=== PATIENT | male | born 1985 | race Caucasian/White ===

== ENCOUNTER 2018-02-02 11:33 | Inpatient (IN) | payer MEDICAID, OTHER ==
[~2018-02-02] VITALS: Ht 188 cm; Wt 108.4 kg
[2018-02-02] MEDS ORDERED: PALI39DI IM (12:30)
[2018-02-02 12:38] LABS: GLUCOSE,POINT OF CARE 107 MG/DL (70-110)
[2018-02-02 12:48] LABS: AMPHET/METH SCREEN,URINE NEGATIVE (NEGATIVE); BARBITURATE SCREEN, URINE NEGATIVE (NEGATIVE); BENZODIAZEPINES SCREEN,URINE NEGATIVE (NEGATIVE); CANNABINOID SCREEN,URINE NEGATIVE (NEGATIVE); COCAINE SCREEN,URINE NEGATIVE (NEGATIVE); METHADONE SCREEN, URINE NEGATIVE (NEGATIVE); OPIATE SCREEN,URINE NEGATIVE (NEGATIVE)
[2018-02-02 12:49] LABS: PHENCYCLIDINE SCREEN,URINE NEGATIVE (NEGATIVE)
[2018-02-02 13:02] LABS: BASOPHILS % (AUTO) 0.6 % (0.0-2.0); EOSINOPHILS % (AUTO) 2.6 % (1.0-6.0); HEMATOCRIT 43.9 % (41-53); HEMOGLOBIN 15.3 g/dL (13.5-17.5); LYMPHOCYTES # (AUTO) 1.8 K/uL (1.0-4.8); LYMPHOCYTES % (AUTO) 26.5 % (22.0-44.0); MEAN CORPUSCULAR HEMOGLOBIN 28.8 pg (26.0-34.0); MEAN CORPUSCULAR VOLUME 82 fL (80-100); MONOCYTES # (AUTO) 0.5 K/uL (0.1-1.0); MONOCYTES % (AUTO) 6.8 % (2.0-9.0); NEUTROPHILS # (AUTO) 4.2 K/uL (1.8-7.7); NEUTROPHILS % (AUTO) 63.5 % (40.0-70.0); PLATELET COUNT (AUTO) 355 K/uL (150-450); RED BLOOD CELL COUNT(AUTO) 5.33 MIL/uL (4.50-5.90)
[2018-02-02 13:10] LABS: ANION GAP 9 mmol/L (8-16); CARBON DIOXIDE 29 mmol/L (22-29); CHLORIDE 102 mmol/L (98-107); CREATININE 1.07 mg/dL (0.60-1.30); GLOMERULAR FILTR. RATE CALC > 60 mL/min (>60); GLUCOSE,RANDOM 102 mg/dL (70-110); POTASSIUM 3.9 mmol/L (3.5-5.1); SODIUM SERUM 140 mmol/L (136-145); UREA NITROGEN, BLOOD 7 mg/dL (7-18)
[2018-02-02 13:16] LABS: ALANINE AMINOTRANSFERASE 59 U/L (12-78); ALBUMIN 3.6 g/dL (3.4-5.0); ALKALINE PHOSPHATASE 115 U/L (46-116); ASPARTATE AMINOTRANSFERASE 29 U/L (15-37); BILIRUBIN,TOTAL 0.3 mg/dL (0.1-1.0); TOTAL PROTEIN, SERUM 8.1 g/dL (6.4-8.2)
[2018-02-02] MEDS ORDERED: ZOLPIDEM TARTRATE 10 MG TABLET PO PRN (15:30)
[2018-02-02] MEDS ORDERED: TUBERCULIN, PURIFIED PROTEIN DERIVATIVE 5 TU/0.1 ML SYG ID ONE (15:30)
[2018-02-02] MEDS ORDERED: HydrOXYzine PAMOATE 50 MG CAPSULE PO PRN (15:30)
[2018-02-02] MEDS ORDERED: MAG HYDROX/AL HYDROX/SIMETH ES 30 ML SUSPENSION UDCUP PO PRN (15:30)
[2018-02-02] MEDS ORDERED: OLANZapine 5 MG RAPDIS TABLET PO PRN (15:30)
[2018-02-02] MEDS ORDERED: PROMETHAZINE HCL 25 MG TABLET PO PRN (15:30)
[2018-02-02] MEDS ORDERED: GuaiFENesin/D-METHORPHAN [SUGAR-FREE] 200-20MG/10 ML SYRUP UDCUP PO PRN (15:30)
[2018-02-02] MEDS ORDERED: MAGNESIUM HYDROXIDE SUSPENSION 30 ML UDCUP PO PRN (15:30)
[2018-02-02] MEDS ORDERED: LOPERAMIDE HCL 2 MG CAPSULE PO PRN (15:30)
[2018-02-02] MEDS ORDERED: ACETAMINOPHEN 325 MG TABLET PO PRN (15:30)
[2018-02-02] MEDS ORDERED: LORazepam 2 MG TABLET PO PRN (15:30)
[2018-02-02] MEDS: THIAMINE HCL 100 MG TABLET PO SCH ×2 (20:52→20:56)
[2018-02-02] MEDS: OLANZapine 5 MG RAPDIS TABLET PO SCH ×2 (20:53→20:56)
[2018-02-02] MEDS: DIVALPROEX SODIUM 500 MG ER TABLET PO SCH (21:00)
[2018-02-03 06:33] LABS: BASOPHILS % (AUTO) 0.8 % (0.0-2.0); EOSINOPHILS % (AUTO) 3.6 % (1.0-6.0); HEMATOCRIT 43.7 % (41-53); HEMOGLOBIN 15.3 g/dL (13.5-17.5); LYMPHOCYTES # (AUTO) 2.4 K/uL (1.0-4.8); LYMPHOCYTES % (AUTO) 33.9 % (22.0-44.0); MEAN CORPUSCULAR VOLUME 83 fL (80-100); MONOCYTES # (AUTO) 0.4 K/uL (0.1-1.0); MONOCYTES % (AUTO) 5.7 % (2.0-9.0); NEUTROPHILS # (AUTO) 3.9 K/uL (1.8-7.7); PLATELET COUNT (AUTO) 333 K/uL (150-450); RED BLOOD CELL COUNT(AUTO) 5.29 MIL/uL (4.50-5.90); RED CELL DISTRIBUTION WIDTH 13.1 % (11.5-14.5)
[2018-02-03 06:57] LABS: ALANINE AMINOTRANSFERASE 47 U/L (12-78); ALBUMIN 3.6 g/dL (3.4-5.0); ALKALINE PHOSPHATASE 107 U/L (46-116); ANION GAP 5 mmol/L (8-16); ASPARTATE AMINOTRANSFERASE 20 U/L (15-37); BILIRUBIN,TOTAL 0.4 mg/dL (0.1-1.0); CALCIUM, TOTAL 9.2 mg/dL (8.8-10.5); CARBON DIOXIDE 28 mmol/L (22-29); CHLORIDE 104 mmol/L (98-107); CREATININE 1.06 mg/dL (0.60-1.30); FREE T4 (FREE THYROXINE) 1.12 ng/dL (0.76-1.46); GLOMERULAR FILTR. RATE CALC > 60 mL/min (>60); GLUCOSE,RANDOM 101 mg/dL (70-110); SODIUM SERUM 137 mmol/L (136-145); TOTAL PROTEIN, SERUM 7.8 g/dL (6.4-8.2); UREA NITROGEN, BLOOD 11 mg/dL (7-18)
[2018-02-03] MEDS: FOLIC ACID 1 MG TABLET PO SCH (08:50)
[2018-02-03] MEDS: NALTREXONE HCL 50 MG TABLET PO SCH (08:50)
[2018-02-03] MEDS: MULTIVITAMINS WITH MINERALS, THERAPEUTIC TABLET PO SCH (08:51)
[2018-02-03] MEDS: THIAMINE HCL 100 MG TABLET PO SCH ×2 (08:51→17:00)
[2018-02-03 16:50] VITALS: BP 137/81
[2018-02-03] MEDS ORDERED: IBUPROFEN 600 MG TABLET PO PRN (18:30)
[2018-02-03] MEDS ORDERED: BISACODYL 5 MG EC TABLET PO PRN (18:30)
[2018-02-03] MEDS ORDERED: ACETAMINOPHEN 325 MG TABLET PO PRN (18:30)
[2018-02-03] MEDS: OLANZapine 5 MG RAPDIS TABLET PO SCH (21:00)
[2018-02-03] MEDS: DIVALPROEX SODIUM 500 MG ER TABLET PO SCH (21:00)
[2018-02-04 02:16] VITALS: BP 131/82
[2018-02-04 08:48] VITALS: BP 118/75
[2018-02-04] MEDS: THIAMINE HCL 100 MG TABLET PO SCH ×2 (09:00→17:00)
[2018-02-04] MEDS: FOLIC ACID 1 MG TABLET PO SCH (09:00)
[2018-02-04] MEDS: MULTIVITAMINS WITH MINERALS, THERAPEUTIC TABLET PO SCH (09:00)
[2018-02-04] MEDS: NALTREXONE HCL 50 MG TABLET PO SCH (09:00)
[2018-02-04 16:09] VITALS: BP 126/81
[2018-02-04] MEDS: DIVALPROEX SODIUM 500 MG ER TABLET PO SCH (21:00)
[2018-02-04] MEDS: OLANZapine 5 MG RAPDIS TABLET PO SCH (21:00)
[2018-02-05 01:02] VITALS: BP 118/72
[2018-02-05 08:20] VITALS: BP 118/64
[2018-02-05] MEDS: FOLIC ACID 1 MG TABLET PO SCH (09:00)
[2018-02-05] MEDS: NALTREXONE HCL 50 MG TABLET PO SCH (09:00)
[2018-02-05] MEDS: MULTIVITAMINS WITH MINERALS, THERAPEUTIC TABLET PO SCH (09:00)
[2018-02-05] MEDS: THIAMINE HCL 100 MG TABLET PO SCH ×2 (09:00→17:03)
[2018-02-05] MEDS ORDERED: HALOPERIDOL DECANOATE 50 MG/ML VIAL IM ONE (14:45)
[2018-02-05] MEDS ORDERED: HALOPERIDOL 5 MG TABLET PO PRN (14:45)
[2018-02-05 16:14] VITALS: BP 124/90
[2018-02-05] MEDS: TRIHEXYPHENIDYL HCL 5 MG TABLET PO SCH (17:03)
[2018-02-05] MEDS ORDERED: HALOPERIDOL 10 MG TABLET PO SCH (21:00)
[2018-02-05] MEDS: DIVALPROEX SODIUM 500 MG ER TABLET PO SCH (21:10)
[2018-02-06 02:36] VITALS: BP 114/77
[2018-02-06 08:45] VITALS: BP 110/72
[2018-02-06] MEDS: TRIHEXYPHENIDYL HCL 5 MG TABLET PO SCH ×3 (08:48→16:30)
[2018-02-06] MEDS: FOLIC ACID 1 MG TABLET PO SCH ×2 (08:49→09:00)
[2018-02-06] MEDS: NALTREXONE HCL 50 MG TABLET PO SCH (08:49)
[2018-02-06] MEDS: THIAMINE HCL 100 MG TABLET PO SCH ×3 (08:49→16:30)
[2018-02-06] MEDS: MULTIVITAMINS WITH MINERALS, THERAPEUTIC TABLET PO SCH ×2 (08:49→09:00)
[2018-02-06 16:10] VITALS: BP 117/67
[2018-02-06] MEDS: DIVALPROEX SODIUM 500 MG ER TABLET PO SCH (20:45)
[2018-02-07 00:46] VITALS: BP 127/75
[2018-02-07 08:00] VITALS: BP 120/69
[2018-02-07] MEDS: FOLIC ACID 1 MG TABLET PO SCH (09:00)
[2018-02-07] MEDS: MULTIVITAMINS WITH MINERALS, THERAPEUTIC TABLET PO SCH (09:00)
[2018-02-07] MEDS: TRIHEXYPHENIDYL HCL 5 MG TABLET PO SCH ×3 (09:00→16:17)
[2018-02-07] MEDS: THIAMINE HCL 100 MG TABLET PO SCH ×2 (09:00→16:17)
[2018-02-07] MEDS: NALTREXONE HCL 50 MG TABLET PO SCH (09:00)
[2018-02-07 16:04] VITALS: BP 140/89
[2018-02-07] MEDS: DIVALPROEX SODIUM 500 MG ER TABLET PO SCH (20:06)
[2018-02-08 00:28] VITALS: BP 131/68
[2018-02-08] MEDS: NALTREXONE HCL 50 MG TABLET PO SCH (08:57)
[2018-02-08] MEDS: TRIHEXYPHENIDYL HCL 5 MG TABLET PO SCH ×3 (08:57→16:20)
[2018-02-08] MEDS: FOLIC ACID 1 MG TABLET PO SCH (08:57)
[2018-02-08] MEDS: THIAMINE HCL 100 MG TABLET PO SCH ×2 (08:58→16:20)
[2018-02-08] MEDS: MULTIVITAMINS WITH MINERALS, THERAPEUTIC TABLET PO SCH (08:58)
[2018-02-08 09:10] VITALS: BP 117/69
[2018-02-08 16:11] VITALS: BP 126/84
[2018-02-08] MEDS: DIVALPROEX SODIUM 500 MG ER TABLET PO SCH (20:09)
[2018-02-09 02:33] VITALS: BP 134/86
[2018-02-09 08:56] VITALS: BP 123/77
[2018-02-09] MEDS: MULTIVITAMINS WITH MINERALS, THERAPEUTIC TABLET PO SCH (09:00)
[2018-02-09] MEDS: FOLIC ACID 1 MG TABLET PO SCH (09:00)
[2018-02-09] MEDS: TRIHEXYPHENIDYL HCL 5 MG TABLET PO SCH ×3 (09:00→16:26)
[2018-02-09] MEDS: NALTREXONE HCL 50 MG TABLET PO SCH (09:00)
[2018-02-09] MEDS: THIAMINE HCL 100 MG TABLET PO SCH ×2 (09:00→16:27)
[2018-02-09 17:40] VITALS: BP 130/80
[2018-02-09] MEDS: DIVALPROEX SODIUM 500 MG ER TABLET PO SCH (20:03)
[2018-02-10 05:08] VITALS: BP 127/81
[2018-02-10 08:35] VITALS: BP 118/74
[2018-02-10] MEDS: TRIHEXYPHENIDYL HCL 5 MG TABLET PO SCH ×3 (09:00→16:33)
[2018-02-10] MEDS: MULTIVITAMINS WITH MINERALS, THERAPEUTIC TABLET PO SCH (09:00)
[2018-02-10] MEDS: THIAMINE HCL 100 MG TABLET PO SCH ×2 (09:00→16:33)
[2018-02-10] MEDS: FOLIC ACID 1 MG TABLET PO SCH (09:00)
[2018-02-10] MEDS: NALTREXONE HCL 50 MG TABLET PO SCH (09:00)
[2018-02-10 16:08] VITALS: BP 122/80
[2018-02-10] MEDS: DIVALPROEX SODIUM 500 MG ER TABLET PO SCH (20:08)
[2018-02-11 05:56] VITALS: BP 118/78
[2018-02-11 08:09] VITALS: BP 106/63
[2018-02-11] MEDS: NALTREXONE HCL 50 MG TABLET PO SCH (09:00)
[2018-02-11] MEDS: THIAMINE HCL 100 MG TABLET PO SCH ×2 (09:00→16:48)
[2018-02-11] MEDS: FOLIC ACID 1 MG TABLET PO SCH (09:00)
[2018-02-11] MEDS: MULTIVITAMINS WITH MINERALS, THERAPEUTIC TABLET PO SCH (09:00)
[2018-02-11] MEDS: TRIHEXYPHENIDYL HCL 5 MG TABLET PO SCH ×3 (09:00→16:48)
[2018-02-11 18:27] VITALS: BP 114/64
[2018-02-11] MEDS: DIVALPROEX SODIUM 500 MG ER TABLET PO SCH (20:10)
[2018-02-12 05:37] VITALS: BP 120/81
[2018-02-12] MEDS: THIAMINE HCL 100 MG TABLET PO SCH (09:00)
[2018-02-12] MEDS: MULTIVITAMINS WITH MINERALS, THERAPEUTIC TABLET PO SCH (09:00)
[2018-02-12] MEDS: FOLIC ACID 1 MG TABLET PO SCH (09:00)
[2018-02-12] MEDS: TRIHEXYPHENIDYL HCL 5 MG TABLET PO SCH ×3 (09:00→16:06)
[2018-02-12] MEDS: NALTREXONE HCL 50 MG TABLET PO SCH (09:00)
[2018-02-12 09:03] VITALS: BP 139/86
[2018-02-12 16:06] VITALS: BP 115/69
[2018-02-12] MEDS: DIVALPROEX SODIUM 500 MG ER TABLET PO SCH (20:06)
[2018-02-13 06:18] VITALS: BP 126/72
[2018-02-13 08:10] VITALS: BP 122/72
[2018-02-13] MEDS: DIVALPROEX SODIUM 500 MG ER TABLET PO SCH ×2 (08:52→20:11)
[2018-02-13] MEDS: TRIHEXYPHENIDYL HCL 5 MG TABLET PO SCH ×3 (08:52→16:20)
[2018-02-13] MEDS: MULTIVITAMINS WITH MINERALS, THERAPEUTIC TABLET PO SCH (08:53)
[2018-02-13] MEDS: NALTREXONE HCL 50 MG TABLET PO SCH (08:53)
[2018-02-13 16:16] VITALS: BP 118/73
[2018-02-14 06:27] VITALS: BP 132/88
[2018-02-14 08:45] VITALS: BP 114/66
[2018-02-14] MEDS: MULTIVITAMINS WITH MINERALS, THERAPEUTIC TABLET PO SCH ×2 (09:00→10:42)
[2018-02-14] MEDS: TRIHEXYPHENIDYL HCL 5 MG TABLET PO SCH ×4 (09:00→16:35)
[2018-02-14] MEDS: NALTREXONE HCL 50 MG TABLET PO SCH ×2 (09:00→10:42)
[2018-02-14] MEDS: DIVALPROEX SODIUM 500 MG ER TABLET PO SCH ×3 (09:00→20:07)
[2018-02-14 16:15] VITALS: BP 125/77
[2018-02-15 01:50] VITALS: BP 118/62
[2018-02-15 08:26] VITALS: BP 120/70
[2018-02-15] MEDS: MULTIVITAMINS WITH MINERALS, THERAPEUTIC TABLET PO SCH (09:00)
[2018-02-15] MEDS: NALTREXONE HCL 50 MG TABLET PO SCH (11:32)
[2018-02-15] MEDS: TRIHEXYPHENIDYL HCL 5 MG TABLET PO SCH ×3 (11:33→16:13)
[2018-02-15] MEDS: DIVALPROEX SODIUM 500 MG ER TABLET PO SCH ×2 (11:33→20:21)
[2018-02-15 16:15] VITALS: BP 115/64
[2018-02-15] MEDS ORDERED: DiphenhydrAMINE HCL 50 MG/ML VIAL IM PRN (21:00)
[2018-02-16 05:51] VITALS: BP 114/65
[2018-02-16 08:30] VITALS: BP 116/66
[2018-02-16] MEDS: NALTREXONE HCL 50 MG TABLET PO SCH (08:44)
[2018-02-16] MEDS: DIVALPROEX SODIUM 500 MG ER TABLET PO SCH ×2 (08:44→20:15)
[2018-02-16] MEDS: OLANZapine 5 MG RAPDIS TABLET SL SCH (08:44)
[2018-02-16] MEDS: MULTIVITAMINS WITH MINERALS, THERAPEUTIC TABLET PO SCH (08:45)
[2018-02-16] MEDS: TRIHEXYPHENIDYL HCL 5 MG TABLET PO SCH ×3 (08:45→16:11)
[2018-02-16] MEDS ORDERED: HALOPERIDOL LACTATE 5 MG/ML VIAL IM PRN (09:00)
[2018-02-16 16:15] VITALS: BP 126/68
[2018-02-17 06:18] VITALS: BP 121/65
[2018-02-17 08:53] VITALS: BP 140/69
[2018-02-17] MEDS: TRIHEXYPHENIDYL HCL 5 MG TABLET PO SCH ×3 (09:00→17:00)
[2018-02-17] MEDS: NALTREXONE HCL 50 MG TABLET PO SCH (09:00)
[2018-02-17] MEDS: MULTIVITAMINS WITH MINERALS, THERAPEUTIC TABLET PO SCH (09:00)
[2018-02-17] MEDS: OLANZapine 5 MG RAPDIS TABLET SL SCH (09:27)
[2018-02-17] MEDS: DIVALPROEX SODIUM 500 MG ER TABLET PO SCH (09:27)
[2018-02-17] MEDS ORDERED: HALO50VI4 IM ×2 (09:50→13:54)
[2018-02-17] MEDS ORDERED: TRIH5TAB2 PO ×2 (09:50→13:54)
[2018-02-17] MEDS ORDERED: NALT50TA PO (09:50)
[2018-02-17] MEDS ORDERED: DIVA500T52 PO ×4 (09:50→13:54)
[2018-02-17] MEDS ORDERED: NALT50TA6 PO (13:54)
[2018-02-17 16:28] VITALS: BP 129/69
[2018-02-19] MEDS ORDERED: HALOPERIDOL DECANOATE 50 MG/ML VIAL IM SCH (09:00)
== END 2018-02-17 16:45 | disposition home or self-care (01) | DRG 750 ==
LOC: EMS 11:35 → B2S 02-03 14:54
PROVIDERS: ADMIT Psychiatry & Neurology Psychiatry; ATTEND Psychiatry & Neurology Psychiatry
DX: F20.0 Paranoid schizophrenia (principal); R45.851 Suicidal ideations; Z91.14 Patient's other noncompliance with medication regimen; E66.9 Obesity, unspecified; F17.210 Nicotine dependence, cigarettes, uncomplicated; G47.00 Insomnia, unspecified; K59.00 Constipation, unspecified; Z65.3 Problems related to other legal circumstances; Z68.30 Body mass index [BMI] 30.0-30.9, adult; Z79.899 Other long term (current) drug therapy
CPT/HCPCS: 80173; 84439; 86592; 99285; G0480; J1631

== ENCOUNTER 2018-12-07 18:44 | Inpatient (IN) | payer MEDICAID, OTHER ==
[~2018-12-07] VITALS: Ht 188 cm; Wt 119.9 kg
[~2018-12-07 18:44] MED LIST: DIVA500T52 PO; HALO5TAB2 PO; OMEG-135 PO; TRIH5TAB2 PO
[2018-12-07] MEDS ORDERED: LORazepam 2 MG/ML VIAL IM ONE (20:00)
[2018-12-07] MEDS ORDERED: DiphenhydrAMINE HCL 50 MG/ML VIAL IM ONE (20:00)
[2018-12-07] MEDS ORDERED: HALOPERIDOL LACTATE 5 MG/ML VIAL IM ONE (20:00)
[2018-12-07 20:05] LABS: BASOPHILS % (AUTO) 0.7 % (0.0-2.0); EOSINOPHILS % (AUTO) 0.3 % (1.0-6.0); HEMATOCRIT 45.3 % (41-53); HEMOGLOBIN 15.5 g/dL (13.5-17.5); LYMPHOCYTES # (AUTO) 1.8 K/uL (1.0-4.8); LYMPHOCYTES % (AUTO) 16.5 % (22.0-44.0); MEAN CORPUSCULAR HGB CONC 34.2 G/dL (31.0-37.0); MEAN CORPUSCULAR VOLUME 85 fL (80-100); MONOCYTES # (AUTO) 0.5 K/uL (0.1-1.0); NEUTROPHILS # (AUTO) 8.4 K/uL (1.8-7.7); NEUTROPHILS % (AUTO) 77.5 % (40.0-70.0); PLATELET COUNT (AUTO) 326 K/uL (150-450); RED BLOOD CELL COUNT(AUTO) 5.34 MIL/uL (4.50-5.90); RED CELL DISTRIBUTION WIDTH 13.8 % (11.5-14.5)
[2018-12-07 20:17] LABS: ANION GAP 11 mmol/L (8-16); CALCIUM, TOTAL 8.9 mg/dL (8.8-10.5); CARBON DIOXIDE 22 mmol/L (22-29); CHLORIDE 106 mmol/L (98-107); CREATININE 1.22 mg/dL (0.60-1.30); GLOMERULAR FILTR. RATE CALC > 60 mL/min (>60); GLUCOSE,RANDOM 173 mg/dL (70-110); POTASSIUM 3.8 mmol/L (3.5-5.1); SODIUM SERUM 139 mmol/L (136-145); UREA NITROGEN, BLOOD 10 mg/dL (7-18)
[2018-12-07 20:23] LABS: ALANINE AMINOTRANSFERASE 62 U/L (12-78); ALBUMIN 3.8 g/dL (3.4-5.0); ALKALINE PHOSPHATASE 104 U/L (46-116); ASPARTATE AMINOTRANSFERASE 26 U/L (15-37); BILIRUBIN,TOTAL 0.2 mg/dL (0.1-1.0); TOTAL PROTEIN, SERUM 7.7 g/dL (6.4-8.2); VALPROIC ACID 11 mcg/mL (50-100)
[2018-12-07 20:40] LABS: AMPHET/METH SCREEN,URINE NEGATIVE (NEGATIVE); BARBITURATE SCREEN, URINE NEGATIVE (NEGATIVE); BENZODIAZEPINES SCREEN,URINE NEGATIVE (NEGATIVE); CANNABINOID SCREEN,URINE NEGATIVE (NEGATIVE); COCAINE SCREEN,URINE NEGATIVE (NEGATIVE); METHADONE SCREEN, URINE NEGATIVE (NEGATIVE); OPIATE SCREEN,URINE NEGATIVE (NEGATIVE)
[2018-12-07 20:43] LABS: PHENCYCLIDINE SCREEN,URINE NEGATIVE (NEGATIVE)
[2018-12-08] MEDS: HALOPERIDOL 5 MG TABLET PO PRN ×2 (09:24→17:47)
[2018-12-08] MEDS: LORazepam 2 MG TABLET PO PRN ×2 (09:24→17:47)
[2018-12-08 17:21] VITALS: BP 136/83
[2018-12-08] MEDS ORDERED: ONDANSETRON HCL 4 MG TABLET PO PRN (20:00)
[2018-12-08] MEDS ORDERED: ACETAMINOPHEN 325 MG TABLET PO PRN (20:00)
[2018-12-08] MEDS ORDERED: NICOTINE 14 MG/24 HOUR PATCH TD PRN (20:00)
[2018-12-08] MEDS ORDERED: IBUPROFEN 400 MG TABLET PO PRN (20:00)
[2018-12-08] MEDS ORDERED: MAGNESIUM HYDROXIDE SUSPENSION 30 ML UDCUP PO PRN (20:00)
[2018-12-08] MEDS ORDERED: PETROLATUM,WHITE 28 GM JELLY TP PRN (20:00)
[2018-12-08] MEDS ORDERED: ALBUTEROL SULFATE HFA 90 MCG/PUFF 8 GM INHALER IH PRN (20:00)
[2018-12-08] MEDS ORDERED: DOCUSATE SODIUM 100 MG CAPSULE PO PRN (20:00)
[2018-12-08] MEDS ORDERED: CloNIDine HCL 0.1 MG TABLET PO PRN (20:00)
[2018-12-08] MEDS ORDERED: LOPERAMIDE HCL 2 MG CAPSULE PO PRN (20:00)
[2018-12-08] MEDS ORDERED: GuaiFENesin/D-METHORPHAN [SUGAR-FREE] 200-20MG/10 ML SYRUP UDCUP PO PRN (20:00)
[2018-12-08] MEDS ORDERED: MAG HYDROX/AL HYDROX/SIMETH ES 30 ML SUSPENSION UDCUP PO PRN (20:00)
[2018-12-08] MEDS: ZOLPIDEM TARTRATE 10 MG TABLET PO PRN (21:17)
[2018-12-09 05:19] VITALS: BP 129/78
[2018-12-09 08:02] VITALS: BP 134/76
[2018-12-09 08:17] LABS: BASOPHILS % (AUTO) 0.9 % (0.0-2.0); EOSINOPHILS % (AUTO) 2.4 % (1.0-6.0); HEMOGLOBIN 15.4 g/dL (13.5-17.5); LYMPHOCYTES # (AUTO) 2.8 K/uL (1.0-4.8); LYMPHOCYTES % (AUTO) 32.1 % (22.0-44.0); MEAN CORPUSCULAR HEMOGLOBIN 28.8 pg (26.0-34.0); MEAN CORPUSCULAR HGB CONC 33.4 G/dL (31.0-37.0); MEAN CORPUSCULAR VOLUME 86 fL (80-100); MONOCYTES # (AUTO) 0.7 K/uL (0.1-1.0); NEUTROPHILS % (AUTO) 56.6 % (40.0-70.0); PLATELET COUNT (AUTO) 302 K/uL (150-450); RED BLOOD CELL COUNT(AUTO) 5.35 MIL/uL (4.50-5.90); RED CELL DISTRIBUTION WIDTH 13.7 % (11.5-14.5)
[2018-12-09 08:35] LABS: HEMOGLOBIN A1C 5.7 % (4.5-6.2)
[2018-12-09 08:52] LABS: ALANINE AMINOTRANSFERASE 69 U/L (12-78); ALBUMIN 3.1 g/dL (3.4-5.0); ALKALINE PHOSPHATASE 94 U/L (46-116); ANION GAP 11 mmol/L (8-16); ASPARTATE AMINOTRANSFERASE 35 U/L (15-37); BILIRUBIN,TOTAL 0.3 mg/dL (0.1-1.0); CALCIUM, TOTAL 8.4 mg/dL (8.8-10.5); CARBON DIOXIDE 26 mmol/L (22-29); CHLORIDE 105 mmol/L (98-107); CHOL/HDL RATIO 5.1 (4.2-7.3); CHOLESTEROL 168 mg/dL (131-200); CREATININE 1.04 mg/dL (0.60-1.30); GLOMERULAR FILTR. RATE CALC > 60 mL/min (>60); GLUCOSE,RANDOM 81 mg/dL (70-110); HDL CHOLESTEROL 33 mg/dL (40-60); LDL CHOL (CALC.) 96 mg/dL (0-130); POTASSIUM 4.2 mmol/L (3.5-5.1); SODIUM SERUM 142 mmol/L (136-145); THYROID STIMULATING HORMONE 3.09 uIU/mL (0.36-3.74); TOTAL PROTEIN, SERUM 6.8 g/dL (6.4-8.2); TRIGLYCERIDES 196 mg/dL (15-150); UREA NITROGEN, BLOOD 11 mg/dL (7-18)
[2018-12-09] MEDS: TRIHEXYPHENIDYL HCL 5 MG TABLET PO SCH ×2 (12:28→16:16)
[2018-12-09 16:01] VITALS: BP 140/78
[2018-12-09] MEDS: HALOPERIDOL 10 MG TABLET PO SCH (16:16)
[2018-12-09] MEDS: DIVALPROEX SODIUM 500 MG ER TABLET PO SCH (20:14)
[2018-12-10 05:39] VITALS: BP 132/81
[2018-12-10] MEDS: HALOPERIDOL 10 MG TABLET PO SCH ×2 (08:15→16:38)
[2018-12-10] MEDS: DIVALPROEX SODIUM 500 MG ER TABLET PO SCH ×2 (08:16→21:29)
[2018-12-10] MEDS: TRIHEXYPHENIDYL HCL 5 MG TABLET PO SCH ×3 (08:16→16:38)
[2018-12-10 08:28] VITALS: BP 125/68
[2018-12-10] MEDS: LORazepam 2 MG TABLET PO PRN ×2 (10:19→16:38)
[2018-12-10] MEDS: HALOPERIDOL 5 MG TABLET PO PRN (10:19)
[2018-12-10 16:03] VITALS: BP 140/69
[2018-12-11 06:44] VITALS: BP 132/78
[2018-12-11] MEDS: TRIHEXYPHENIDYL HCL 5 MG TABLET PO SCH ×3 (08:13→16:07)
[2018-12-11] MEDS: DIVALPROEX SODIUM 500 MG ER TABLET PO SCH ×2 (08:13→20:09)
[2018-12-11] MEDS: HALOPERIDOL 10 MG TABLET PO SCH ×2 (08:13→16:07)
[2018-12-11 08:16] VITALS: BP 119/74
[2018-12-11] MEDS: LORazepam 2 MG TABLET PO PRN (16:07)
[2018-12-11 17:23] VITALS: BP 121/79
[2018-12-12 06:53] VITALS: BP 118/69
[2018-12-12] MEDS: HALOPERIDOL 10 MG TABLET PO SCH ×2 (08:12→16:31)
[2018-12-12] MEDS: DIVALPROEX SODIUM 500 MG ER TABLET PO SCH ×2 (08:12→20:15)
[2018-12-12] MEDS: TRIHEXYPHENIDYL HCL 5 MG TABLET PO SCH ×3 (08:12→16:31)
[2018-12-12 08:17] VITALS: BP 113/80
[2018-12-12 16:13] VITALS: BP 138/84
[2018-12-12] MEDS: LORazepam 2 MG TABLET PO PRN (16:31)
[2018-12-12] MEDS: ZOLPIDEM TARTRATE 10 MG TABLET PO PRN (20:16)
[2018-12-13 06:18] VITALS: BP 135/79
[2018-12-13] MEDS: HALOPERIDOL 10 MG TABLET PO SCH ×2 (08:06→16:30)
[2018-12-13] MEDS: DIVALPROEX SODIUM 500 MG ER TABLET PO SCH ×2 (08:06→20:03)
[2018-12-13] MEDS: LORazepam 2 MG TABLET PO PRN ×2 (08:06→16:30)
[2018-12-13] MEDS: TRIHEXYPHENIDYL HCL 5 MG TABLET PO SCH ×3 (08:06→16:30)
[2018-12-13 08:10] VITALS: BP 122/62
[2018-12-13 16:36] VITALS: BP 114/79
[2018-12-13] MEDS: ZOLPIDEM TARTRATE 10 MG TABLET PO PRN (20:03)
[2018-12-14 07:03] VITALS: BP 126/82
[2018-12-14] MEDS: DIVALPROEX SODIUM 500 MG ER TABLET PO SCH ×2 (08:09→20:36)
[2018-12-14] MEDS: LORazepam 2 MG TABLET PO PRN ×3 (08:09→20:36)
[2018-12-14] MEDS: HALOPERIDOL 10 MG TABLET PO SCH ×2 (08:09→16:35)
[2018-12-14] MEDS: TRIHEXYPHENIDYL HCL 5 MG TABLET PO SCH ×3 (08:09→16:35)
[2018-12-14 08:30] VITALS: BP 119/60
[2018-12-14 16:00] VITALS: BP 129/76
[2018-12-14] MEDS: ZOLPIDEM TARTRATE 10 MG TABLET PO PRN (20:36)
[2018-12-15 06:26] VITALS: BP 105/60
[2018-12-15] MEDS: HALOPERIDOL 10 MG TABLET PO SCH ×2 (08:17→16:01)
[2018-12-15] MEDS: TRIHEXYPHENIDYL HCL 5 MG TABLET PO SCH ×3 (08:17→16:01)
[2018-12-15] MEDS: DIVALPROEX SODIUM 500 MG ER TABLET PO SCH (08:17)
[2018-12-15] MEDS: LORazepam 2 MG TABLET PO PRN (08:18)
[2018-12-15 08:41] VITALS: BP 126/75
[2018-12-15] MEDS ORDERED: OMEGA-3/DHA/EPA/FISH OIL 1,000 MG CAPSULE PO SCH (09:00)
[2018-12-15] MEDS ORDERED: HALOPERIDOL DECANOATE 100 MG/ML VIAL IM SCH (15:00)
[2018-12-15] MEDS ORDERED: HALO10TA3 PO (15:32)
[2018-12-15] MEDS ORDERED: HALO100V4 IM (15:33)
[2018-12-15 16:00] VITALS: BP 127/79
[2019-01-13] MEDS ORDERED: HALOPERIDOL DECANOATE 100 MG/ML VIAL IM SCH (09:00)
== END 2018-12-15 17:35 | disposition home or self-care (01) | DRG 750 ==
LOC: EMS 18:47 → B3A 12-08 17:56
PROVIDERS: ADMIT Psychiatry & Neurology Psychiatry; ATTEND Psychiatry & Neurology Psychiatry
DX: F25.0 Schizoaffective disorder, bipolar type (principal); G25.9 Extrapyramidal and movement disorder, unspecified; R45.851 Suicidal ideations; F41.9 Anxiety disorder, unspecified; I10 Essential (primary) hypertension; K59.00 Constipation, unspecified; F15.90 Other stimulant use, unspecified, uncomplicated; E78.5 Hyperlipidemia, unspecified; Z91.19 Patient's noncompliance with other medical treatment and regimen; Z79.899 Other long term (current) drug therapy; R00.0 Tachycardia, unspecified
CPT/HCPCS: 83036; 84443; 87081; 96372; 99291; G0480; J1200; J1630; J1631; J2060